=== PATIENT | female | born 1940 | race Hispanic/Latino ===

== ENCOUNTER 2017-07-27 10:38 | Outpatient (CLI) | payer MEDICARE | END 2017-07-27 10:39 | disposition home or self-care (01) | LOC: SCSMAMMO 10:38 | PROVIDERS: ATTEND Internal Medicine Geriatric Medicine | DX: Z12.31 Encounter for screening mammogram for malignant neoplasm of breast (principal); M06.9 Rheumatoid arthritis, unspecified | CPT/HCPCS: 77067; G0202 ==

== ENCOUNTER 2018-07-06 10:05 | Outpatient (CLI) | payer MEDICARE ==
[2018-07-06 11:07] LABS: Cardiac Risk 2.9 (Less than 4.5)
--- NOTE | 2018-07-06 11:07 | ULT ---
THYROID ULTRASOUND: HISTORY: Abnormal TSH levels. COMPARISON: None. TECHNIQUE: Sagittal and transverse imaging of the thyroid gland is performed. FINDINGS: Homogeneous echotexture of the thyroid gland. Thyroid isthmus measures 0.7 cm. Right thyroid lobe m easures 2.8 x 0.6 x 1.1 cm. Left thyroid lobe measures 0.8 x 0.8 x 2.1 cm. IMPRESSION: No evidence of a discrete solid or cystic nodule in the thyroid gland. POS: ARIELLA
[2018-07-06 11:30] LABS: Free T4 (Free Thyroxine) 1.19 ng/dL (0.70-1.48); Thyroid Stimulating Hormone 16.9248 uIU/mL (0.35-4.94)
== END 2018-07-06 10:06 | disposition home or self-care (01) ==
LOC: SCSULT 10:05
PROVIDERS: ATTEND Internal Medicine Geriatric Medicine
DX: E78.2 Mixed hyperlipidemia (principal); R79.89 Other specified abnormal findings of blood chemistry
CPT/HCPCS: 76536; 80061; 84439; 84443; 84481

== ENCOUNTER 2019-01-30 12:37 | Outpatient (CLI) | payer MEDICARE ==
[2019-01-30 13:22] LABS: #Basophils 0.1 thou/uL (0.0-0.2); #Eosinphils 0.5 thou/uL (0.0-0.7); #Lymphocytes 1.7 thou/uL (1.20-3.40); #Monocytes 0.5 thou/uL (0.11-0.59); #Neutrophils 4.5 thou/uL (1.40-6.50); %Basophils 1.1 % (0.0-1.0); %Eosinophils 6.4 % (0.0-10.0); %Lymphocytes 23.7 % (21.0-51.0); %Monocytes 6.4 % (0.0-10.0); %Neutrophils 62.4 % (42.0-75.0); Hemoglobin 11.9 g/dL (12.0-16.0); Mean Corpuscular HGB CONC 32.8 g/dL (32.0-36.0); Mean Corpuscular Hemoglobin 30.1 pg (27.0-31.0); Mean Corpuscular Volume 91.8 fL (78.0-98.0); Mean Platelet Volume 8.7 fL (7.4-10.4); Platelet Count 167 thou/uL (130-400); RBC Distribution Width 13.7 % (11.5-14.5); Red Blood Cell (RBC) Count 3.95 mill/uL (4.20-5.40); White Blood Cell (WBC) Count 7.2 thou/uL (4.8-10.8)
[2019-01-30 13:33] LABS: ALT (SGPT) 24 U/L (8-55); AST (SGOT) 35 U/L (5-34); Albumin 3.9 g/dL (3.4-4.8); Alkaline Phosphatase 69 U/L (40-150); Anion Gap 14 mmol/L (10-20); BUN (Urea Nitrogen) 26 mg/dL (9.8-20.1); Bilirubin, Total 0.5 mg/dL (0.2-1.2); Calc. Creatinine Clearance 0 mL/min (70-130); Calcium 9.2 mg/dL (7.8-10.44); Carbon Dioxide 25 mmol/L (23-31); Cardiac Risk 2.9 (Less than 4.5); Chloride 102 mmol/L (98-107); Cholesterol 154 mg/dl (< 200 Desired); Estimated GFR-MDRD 50; Globulin 3.1 g/dL (2.4-3.5); Glucose 127 mg/dL (83-110); HDL Cholesterol 54 mg/dL (>60 Neg Risk); LDL Cholesterol, Calculated 82 mg/dL; Potassium 3.7 mmol/L (3.5-5.1); Sodium 137 mmol/L (136-145); Triglycerides 90 mg/dL (Less than 150)
[2019-01-30 14:01] LABS: Free T4 (Free Thyroxine) 1.24 ng/dL (0.70-1.48); Thyroid Stimulating Hormone 0.2817 uIU/mL (0.35-4.94)
--- NOTE | 2019-01-31 08:12 | MMO ---
Bilateral MAMMO Bilat Screen [facility]DI. CLINICAL HISTORY: Patient is 78 years old and is seen for screening. The patient has no family history of breast cancer. The patient has no personal history of cancer. VIEWS: The views performed were: bilateral craniocaudal and bilateral mediolateral oblique. FILMS COMPARED: The present examination has been compared to a prior imaging study performed at [facility] on 07/27/2017. This study has been interpreted with the assistance of computer-aided detection. MAMMOGRAM FINDINGS: There are scattered fibroglandular densities. There are no suspicious masses, suspicious calcifications, or new areas of architectural distortion. IMPRESSION: THERE IS NO MAMMOGRAPHIC EVIDENCE OF MALIGNANCY. A ROUTINE FOLLOW-UP MAMMOGRAM IN 1 YEAR IS RECOMMENDED. ACR BI-RADS Category 1 - Negative MAMMOGRAPHY NOTE: 1. A negative mammogram report should not delay a biopsy if a dominant of clinically suspicious mass is present. 2. Approximately 10% to 15% of breast cancers are not detected by mammography. 3. Adenosis and dense breasts may obscure an underlying neoplasm.
== END 2019-01-30 12:38 | disposition home or self-care (01) ==
LOC: SCSMAMMO 12:37
PROVIDERS: ATTEND Internal Medicine Geriatric Medicine
DX: Z12.31 Encounter for screening mammogram for malignant neoplasm of breast (principal); E03.9 Hypothyroidism, unspecified; E78.2 Mixed hyperlipidemia
CPT/HCPCS: 36415; 77067; 80053; 80061; 84439; 84443; 85025

== ENCOUNTER 2019-04-20 10:03 | Outpatient (CLI) | payer MEDICARE ==
--- NOTE | 2019-04-20 10:45 | ULT ---
US Gallbladder RUQ History: Right upper quadrant pain Comparison: None. Findings: Real-time grayscale and color evaluation of the right upper quadrant of the abdomen was per formed. The pancreas is not well seen. Visualized portions of the aorta and IVC are unremarkable. Common bile duct measures 4 mm. Gallbladder wall thickness is normal. No cholelithiasis. Liver is normal. Right kidney measures 10.2 x 3.7 x 5.1 cm without mass, hydronephrosis, or abnormal calcifications. Portal vein is patent with antegrade flow. Impression: Normal right upper quadrant ultrasound.
== END 2019-04-20 10:04 | disposition home or self-care (01) ==
LOC: SCSULT 10:03
PROVIDERS: ATTEND Internal Medicine Geriatric Medicine
DX: R10.11 Right upper quadrant pain (principal)
CPT/HCPCS: 76705

== ENCOUNTER 2019-06-06 09:28 | Outpatient (CLI) | payer MEDICARE ==
--- NOTE | 2019-06-06 12:09 | CT ---
CT ABDOMEN AND PELVIS WITH IV CONTRAST 06/06/2019 CLINICAL INFORMATION: Unintentional weight loss. Abdominal pain. COMPARISON: None. Technique: Multiple contiguous axial CT images are obtained through the abdomen and pelvis with IV contrast. Cor onal reformatted images are provided. FINDINGS: Lower Chest: Lung bases are clear without evidence of a pulmonary nodule or pleural effusion. Vessels: Vascular calcifications are seen. Abdomen: Portal vein:The main portal vein is dilated measuring 1.8 cm in diameter. No varices are seen. Gallbladder: Within normal limits for CT imaging. Liver: There are a few scattered subcentimeter too small to characterize hypodense lesions within the right hepatic lobe. A larger lobulated hypodense lesion demonstrating fluid attenuation is seen in the posterior segment right hepatic lobe measuring 1.6 cm. Findings are statistically most likely rel ated to hepatic cysts. Given multiplicity, cystic metastatic lesions cannot be entirely excluded. Spleen: within normal limits. Pancreas: within normal limits. Adrenals: within normal limits. Kidneys: within normal limits. Bowel: Normal caliber. Appendix: Not visualized, but there are no secondary signs to suggest appendicitis. Peritoneum: No ascites or free air; no fluid collection. Mesentery and Retroperitoneum: No enlarged mesenteric or retroperitoneal lymph nodes. Abdominal Wall: within normal limits. Pelvis: Reproductive Organs: There is evidence of hysterectomy. Pelvis within normal limits. Bladder: Mostly decompressed but otherwise grossly within normal limits. Bones: Multilevel degenerative changes in the spine. Mild bilateral hip osteoarthritis is present.. N o suspicious lytic or sclerotic osseous lesions are appreciated. There is a hemangioma in the L2 vertebral body. IMPRESSION: 1. No acute findings are seen in the abdomen or pelvis. 2. Subcentimeter too small to characterize hypodense lesions right hepatic lobe with larger fluid att enuation density right hepatic lobe. Findings are likely related to hepatic cysts; although, given multiplicity, cystic metastatic lesions would be difficult to entirely exclude. 3. Dilatation of main portal vein measuring 1.8 cm suggesting an element of portal hypertension, but no varices are present.
== END 2019-06-06 09:29 | disposition home or self-care (01) ==
LOC: SCSCT 09:28
PROVIDERS: ATTEND Family Medicine
DX: R63.4 Abnormal weight loss (principal); R10.9 Unspecified abdominal pain
CPT/HCPCS: 74177; 82565

== ENCOUNTER 2019-06-20 10:32 | Outpatient (CLI) | payer MEDICARE ==
--- NOTE | 2019-06-20 13:21 | RAD ---
CERVICAL SPINE: Total of nine views 06/20/19 HISTORY: Rheumatoid arthritis. Neck pain. Moderate degenerative changes seen at all levels of the cervical spine. There is loss of disc space a t all levels with degenerative osteophytes seen from the cervical vertebrae. There is an anterolisthe sis at C2-3 measured at 2 to 3 mm. Posterior spondylosis at C3-4, C4-5, C5-6, and C6-7. There is a po sterolisthesis at C6-7 measured at 2 to 3 mm. The anterolisthesis at C2-3 exacerbates with flexion and slightly reduces with extension. The posterolisthesis at C4-5 reduces with flexion and exacerbates with extension. Slight posterolisth esis at C5-6 is also seen with extension. IMPRESSION: Moderate degenerative changes at all levels of the cervical spine as described. POS: MARY JO
== END 2019-06-20 10:33 | disposition home or self-care (01) ==
LOC: SCSRAD 10:32
PROVIDERS: ATTEND Internal Medicine Rheumatology
DX: M05.79 Rheumatoid arthritis with rheumatoid factor of multiple sites without organ or systems involvement (principal); M54.2 Cervicalgia; M47.812 Spondylosis without myelopathy or radiculopathy, cervical region
CPT/HCPCS: 72052

== ENCOUNTER 2019-08-20 08:05 | Outpatient (CLI) | payer MEDICARE ==
[2019-08-20] MEDS ORDERED: Gadobenate Dimeglumine 529 MG/1 ML (20ML VIAL) ONE (09:00)
--- NOTE | 2019-08-20 10:46 | MRI ---
MRI Abdomen W WO Con History: Imaging of liver abnormal R 93.2. Weight loss R 63.4 Comparison: CT abdomen and pelvis May 2019. Findings: Correspond to hypodensities on the CT examination from May 2019 are multiple hepatic sim ple cysts. No abnormal solid enhancing hepatic mass. Portal venous shunt hepatic segment 6. Portal vein is patent with normal directional flow. Splenic ve in is patent. Hepatic veins are patent. Aortic contour is nonaneurysmal. No retroperitoneal periaortic adenopathy. The adrenal glands are unremarkable. No hydronephrosis. No abnormal renal enhancing mass. Pancreas is unremarkable. The pancreatic duct size is upper limits of normal. Intraosseous hemangioma L2 vertebral body. No pleural effusion. No pericardial fluid. Incidental note is made of a left iliopsoas bursa effusion. Impression: 1. Corresponding to the previously described hepatic hypodensities on the CT examination are multiple simple cysts. No abnormal solid enhancing mass. 2. No acute inflammatory process within the abdomen or pelvis. 3. Mild dilatation of the main vein which is patent without evidence for portal hypertension.
--- NOTE | 2019-08-20 11:10 | RAD ---
2 VIEW CHEST: Date: 08/20/19 HISTORY: Weight loss. FINDINGS: Lung madsen are clear. Heart and mediastinum appear normal. Osseous structures unremarkable. IMPRESSION: No acute abnormality. POS: H
== END 2019-08-20 08:06 | disposition home or self-care (01) ==
LOC: SCSMRI 08:05
PROVIDERS: ATTEND Internal Medicine Gastroenterology
DX: R63.4 Abnormal weight loss (principal); R93.2 Abnormal findings on diagnostic imaging of liver and biliary tract
CPT/HCPCS: 71046; 74183; A9577